=== PATIENT | male | born 1960 | race Caucasian/White ===

== ENCOUNTER 2017-07-17 09:00 | Emergency (ER) | payer OTHER ==
--- NOTE | 2017-07-17 09:06 | ED Physician Documentation ---
PD HPI HEADACHE - Stated complaint Stated Complaint: MIGRAINE - History obtained from History obtained from: Patient - History of Present Illness Timing - onset: Yesterday Timing - onset during: Light activity Timing - duration: Days (09/27) Timing - details: Gradual onset, Still present Worst headache ever?: No: Worst headache ever? Location: Right Quality: Throbbing, Aching Associated symptoms: Nausea, Vomiting. No: Fever, Weakness, Eye pain, Vision changes Improved by: Dark room. No: Meds (tried usual meds without improvement) Worsened by: Light, Noise Contributing factors: No: Possible carbon monoxide, Recent illness, Trauma Similar symptoms before: Diagnosis (migraines) Review of Systems Constitutional: denies: Fever, Chills Eyes: reports: Decreased vision (slightly blurry), Photophobia. denies: Loss of vision Nose: denies: Rhinorrhea / runny nose, Congestion Throat: denies: Sore throat Respiratory: denies: Cough GI: reports: Nausea, Vomiting. denies: Abdominal Pain, Diarrhea Skin: denies: Rash, Lesions Neurologic: reports: Headache. denies: Focal weakness, Numbness, Difficulty speaking, Altered mental status, Head injury PD PAST MEDICAL HISTORY - Past Medical History Cardiovascular: Hypertension Respiratory: Sleep apnea Neuro: Headache/migraine GI: GERD - Past Surgical History Past Surgical History: Yes - Present Medications Home Medications: Ambulatory Orders Medication Instructions Recorded Confirmed Lisinopril 10 mg DAILY 09/27/15 07/17/17 Promethazine [Phenergan] 25 mg PO Q6H PRN #20 tab 07/17/17 Rizatriptan Benzoate [Rizatriptan] 10 mg PO ONCE PRN #5 tablet 07/17/17 - Allergies Allergies/Adverse Reactions: Allergies Allergy/AdvReac Type Severity Reaction Status Date / Time No Known Drug Allergies Allergy Verified 09/27/15 10:12 - Social History Does the pt smoke?: No Smoking Status: Never smoker Does the pt drink ETOH?: No Does the pt have substance abuse?: No - Immunizations Immunizations are current?: Yes PD ED PE NORMAL - Vitals Vital signs reviewed: Yes - General General: Alert and oriented X 3, Well developed/nourished - HEENT HEENT: Atraumatic, PERRL (light sensitive), Pharynx benign - Neck Neck: Supple, no meningeal sign, No adenopathy - Cardiac Cardiac: RRR, No murmur - Respiratory Respiratory: Clear bilaterally - Derm Derm: Normal color, Warm and dry, No rash - Extremities Extremities: Normal ROM s pain - Neuro Neuro: Alert and oriented X 3, enroller 2-12 intact, No motor deficit, No sensory deficit, Normal speech Results - Vitals Vitals: Oxygen O2 Source Room air PD MEDICAL DECISION MAKING - ED course Complexity details: re-evaluated patient (improved quite a bit, bot not complete resolution, but feels good enough to go.), considered differential, d/ w patient Departure - Departure Disposition: Home, Self Care Clinical Impression: Migraine Qualifiers: Migraine type: without aura Status migrainosus presence: without status migrainosus Intractability: intractable Qualified Code(s): G43.019 - Migraine without aura, intractable, without status migrainosus Condition: Stable Record reviewed to determine appropriate education?: Yes Instructions: ED Headache Migraine Follow-Up: Fred Saunders MD [Primary Care Provider] - Prescriptions: Promethazine [Phenergan] 25 mg PO Q6H PRN #20 tab PRN Reason: Nausea / Vomiting Rizatriptan Benzoate [Rizatriptan] 10 mg PO ONCE PRN #5 tablet PRN Reason: Headache Comments: For further headaches, continue with the Excedrin Migraine initially. If that does not work then try a combination of the rizatriptan and Phenergan and see if that makes the headache go away over 30 minutes or so. If still recurrent and persistent, he can return to the ER as needed. Follow-up with your family doctor if more frequent headaches develop as it can be some preventative medicines as well. Discharge Date/Time: 07/17/17 10:36
[2017-07-17] MEDS ORDERED: KETOROLAC 60 MG/2 ML VIAL IVP STA (09:20)
[2017-07-17] MEDS ORDERED: SODIUM CHLORIDE 0.9% 1,000 ML IV ONE (09:20)
[2017-07-17] MEDS ORDERED: METOCLOPRAMIDE 10 MG/2 ML VIAL IVP STA (09:21)
[2017-07-17] MEDS ORDERED: DEXAMETHASONE 10 MG/ML VIAL IVP STA (09:21)
[2017-07-17] MEDS ORDERED: KETOROLAC 30 MG/ML VIAL ONE (09:29)
[2017-07-17] MEDS ORDERED: METOCLOPRAMIDE 10 MG/2 ML VIAL ONE (09:29)
[2017-07-17] MEDS ORDERED: DEXAMETHASONE 10 MG/ML VIAL ONE (09:29)
[2017-07-17 10:31] VITALS: BP 142/104
== END 2017-07-17 10:36 | disposition home or self-care (01) ==
LOC: ED 09:00
DX: G43.019 Migraine without aura, intractable, without status migrainosus (principal); I10 Essential (primary) hypertension
CPT/HCPCS: 96361; 96374; 96375; 99283; 99284

== ENCOUNTER 2017-12-28 07:56 | Day surgery (SDC) | payer OTHER ==
[2017-12-28] MEDS ORDERED: LACTATED RINGERS 1,000 ML IV ONE (08:34)
[2017-12-28] MEDS ORDERED: fentaNYL 100 MCG/2 ML VIAL IVP ONE (09:51)
[2017-12-28] MEDS ORDERED: MIDAZOLAM 2 MG/2 ML VIAL IVP ONE (09:51)
[2017-12-28 10:54] VITALS: BP 116/70
== END 2017-12-28 07:57 | disposition home or self-care (01) ==
LOC: SDS 07:56
PROVIDERS: ATTEND Internal Medicine
PROC: 0DB38ZX Excision of Lower Esophagus, Via Natural or Artificial Opening Endoscopic, Diagnostic (ICD-10-PCS; 2017-12-28)
PROC: 0DB48ZX Excision of Esophagogastric Junction, Via Natural or Artificial Opening Endoscopic, Diagnostic (ICD-10-PCS; 2017-12-28)
PROC: 0DB68ZX Excision of Stomach, Via Natural or Artificial Opening Endoscopic, Diagnostic (ICD-10-PCS; principal; 2017-12-28 09:30)
DX: R13.10 Dysphagia, unspecified (principal); K22.10 Ulcer of esophagus without bleeding
CPT/HCPCS: 43239; J7120

== ENCOUNTER 2018-09-15 10:15 | Emergency (ER) | payer OTHER ==
[2018-09-15 10:26] VITALS: BP 135/90
--- NOTE | 2018-09-15 12:02 | ED Physician Documentation ---
PD HPI OPHTHO - Stated complaint Stated Complaint: L EYE IRRITATION - Chief complaint Chief Complaint: Heent - History obtained from History obtained from: Patient - History of Present Illness Timing - onset: Other (2 days of irritation and drainage from the left eye without specific injury. He did not wear contacts. It starting to mildly affect his vision.) Review of Systems Constitutional: denies: Fever, Chills Eyes: reports: Decreased vision, Discharge, Irritation. denies: Loss of vision, Photophobia Ears: denies: Loss of hearing PD PAST MEDICAL HISTORY - Past Medical History Cardiovascular: Hypertension Respiratory: Sleep apnea, CPAP use Endocrine/Autoimmune: None GI: GERD, Hiatal hernia : None HEENT: Chronic vision loss, Chronic sinusitis Psych: Post traumatic stress disorder Musculoskeletal: Chronic back pain Derm: None - Past Surgical History Past Surgical History: Yes General: Gastric surgery, Hiatal hernia repair, Colonoscopy Ortho: Spine surgery - Present Medications Home Medications: Ambulatory Orders Medication Instructions Recorded Confirmed Lisinopril 10 mg DAILY 09/27/15 12/28/17 Amitriptyline [Elavil] 10 mg PO DAILY 12/28/17 12/28/17 Aspirin/Acetaminophen/Caffeine 1 cap PO DAILY PRN 12/28/17 12/28/17 [Excedrin Migraine Caplet] Cephalexin [Keflex] 500 mg PO BID 12/28/17 12/28/17 Omeprazole [PriLOSEC] 20 mg PO BID 12/28/17 12/28/17 Polymyxin B/Trimeth Ophth Drop 1 drops EACHEYE Q3H 7 Days #1 09/15/18 [Polytrim Ophth Drops] bottle - Allergies Allergies/Adverse Reactions: Allergies Allergy/AdvReac Type Severity Reaction Status Date / Time Latex, Natural Rubber AdvReac Rash Verified 09/15/18 10:26 - Social History Does the pt smoke?: No Smoking Status: Never smoker Does the pt drink ETOH?: No Does the pt have substance abuse?: No - Immunizations Immunizations are current?: Yes PD ED PE NORMAL - Vitals Vital signs reviewed: Yes - General General: Alert and oriented X 3, No acute distress - HEENT HEENT: PERRL, EOMI, Other (Left-sided conjunctivitis without floor seen uptake, Silviano-Pen on the left is 15. Symptoms are completely resolved after proparacaine administration.) - Neck Neck: Supple, no meningeal sign, No bony TTP - Neuro Neuro: Alert and oriented X 3, Normal speech Results - Vitals Vitals: Vital Signs - 24 hr 09/15/18 10:23 Temperature 35.7 C L Heart Rate 76 Respiratory 20 Rate Blood Pressure 135/90 H O2 Saturation 95 Oxygen O2 Source Room air Departure - Departure Disposition: Home, Self Care Clinical Impression: Left conjunctivitis Qualifiers: Conjunctivitis type: acute Acute conjunctivitis type: unspecified Qualified Code(s): H10.32 - Unspecified acute conjunctivitis, left eye Condition: Good Record reviewed to determine appropriate education?: Yes Instructions: ED Conjunctivitis Nonspecific Prescriptions: Polymyxin B/Trimeth Ophth Drop [Polytrim Ophth Drops] 1 drops EACHEYE Q3H 7 Days #1 bottle Comments: Follow-up with your eye doctor on Tuesday if not better, return if worse or if new symptoms develop. Your blood pressure was elevated today on check into the emergency department. This does not mean that you have hypertension, it is a common phenomenon to come to the emergency department and have elevated blood pressure. I recommend that you see your primary care physician within the week to have it rechecked when you are feeling better.
[2018-09-15] MEDS: PROPARACAINE 0.5% OPHTH DROPS 15 ML LEFTEYE STA (12:08)
== END 2018-09-15 12:10 | disposition home or self-care (01) ==
LOC: ED 10:15
DX: H10.32 Unspecified acute conjunctivitis, left eye (principal); I10 Essential (primary) hypertension
CPT/HCPCS: 99281; 99283

== ENCOUNTER 2019-04-22 11:17 | Emergency (ER) | payer OTHER ==
[2019-04-22 11:34] VITALS: BP 133/115
[2019-04-22] MEDS ORDERED: CLINDAMYCIN 150 MG CAPSULE PO STA (11:57)
--- NOTE | 2019-04-22 12:00 | ED Physician Documentation ---
PD HPI HEENT - Stated complaint Stated Complaint: UPPER R EYE IRRITATION - Chief complaint Chief Complaint: Heent - History obtained from History obtained from: Patient - History of Present Illness Timing - onset: How many weeks ago (1) Timing - duration: Weeks (1) Timing - details: Still present Location: Other (right eyelid) Associated symptoms: Facial swelling (right eyelid) Similar symptoms before: Has not had sx before - Additional information Additional information: The patient is a 59-year-old male who presents with swelling of his right upper eyelid on the lateral aspect. It first started about 1 week ago and has been persistent since that time. He has tried squeezing it but nothing comes out. He denies fever, visual disturbance, nausea or vomiting. He wears glasses for reading. He denies history of similar symptoms in the past. He has no personal history of MRSA infection. 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 Review of Systems Constitutional: denies: Fever Eyes: reports: Other (Swelling right upper eyelid.). denies: Discharge Ears: denies: Ear pain Nose: denies: Congestion Throat: denies: Sore throat Cardiac: denies: Chest pain / pressure Respiratory: denies: Dyspnea, Cough GI: denies: Abdominal Pain, Nausea, Vomiting Skin: denies: Rash Musculoskeletal: denies: Neck pain Neurologic: reports: Headache (mild.) PD PAST MEDICAL HISTORY - Past Medical History Cardiovascular: Hypertension Respiratory: Sleep apnea, CPAP use Endocrine/Autoimmune: None GI: GERD, Hiatal hernia : None HEENT: Chronic vision loss, Chronic sinusitis Psych: Post traumatic stress disorder Musculoskeletal: Chronic back pain Derm: None - Past Surgical History Past Surgical History: Yes General: Gastric surgery, Hiatal hernia repair, Colonoscopy Ortho: Spine surgery - Present Medications Home Medications: Ambulatory Orders Medication Instructions Recorded Confirmed Lisinopril 10 mg DAILY 09/27/15 12/28/17 Amitriptyline [Elavil] 10 mg PO DAILY 12/28/17 12/28/17 Aspirin/Acetaminophen/Caffeine 1 cap PO DAILY PRN 12/28/17 12/28/17 [Excedrin Migraine Caplet] Omeprazole [PriLOSEC] 20 mg PO BID 12/28/17 12/28/17 Clindamycin HCl [Clindamycin 300MG 300 mg PO Q6H #28 capsule 04/22/19 CAP] - Allergies Allergies/Adverse Reactions: Allergies Allergy/AdvReac Type Severity Reaction Status Date / Time Latex, Natural Rubber AdvReac Rash Verified 04/22/19 11:24 - Social History Does the pt smoke?: No Smoking Status: Never smoker Does the pt drink ETOH?: No Does the pt have substance abuse?: No - Immunizations Immunizations are current?: Yes PD ED PE NORMAL - Vitals Vital signs reviewed: Yes (Hypertensive) - General General: Alert and oriented X 3, Well developed/nourished - HEENT HEENT: Atraumatic, PERRL, EOMI, Ears normal, Pharynx benign, Other (There is swelling at the lateral aspect of the right upper eyelid, with superficial abrasion. There is no fluctuance. There is mild tenderness to palpation.) - Neck Neck: Supple, no meningeal sign, No adenopathy - Cardiac Cardiac: RRR - Respiratory Respiratory: No respiratory distress, Clear bilaterally - Derm Derm: No rash - Neuro Neuro: Alert and oriented X 3, No motor deficit, Normal speech Results - Vitals Vitals: Vital Signs - 24 hr 04/22/19 04/22/19 11:23 11:33 Temperature 36.3 C L 36.7 C Heart Rate 93 96 Respiratory 20 15 Rate Blood Pressure 145/116 H 133/115 H O2 Saturation 92 92 Oxygen O2 Source Room air PD MEDICAL DECISION MAKING - ED course Complexity details: considered differential, d/w patient ED course: The patient's presentation is most consistent with superficial cellulitis of the right upper eyelid. This does not appear to be an abscess, and there is no evidence of conjunctival involvement. Treatment in the emergency department included administration of clindamycin 300 mg orally. He is being discharged with prescription for clindamycin. I discussed with him and his male clinic administrator antibiotic treatment and outpatient follow-up, as well as potentially worrisome signs or symptoms that should prompt reevaluation in the emergency department. Departure - Departure Disposition: 01 Home, Self Care Clinical Impression: Cellulitis Qualifiers: Site of cellulitis: face Qualified Code(s): L03.211 - Cellulitis of face Condition: Stable Instructions: ED Infec Skin Cellulitis Follow-Up: [facility] [Provider Group] Prescriptions: Clindamycin HCl [Clindamycin 300MG CAP] 300 mg PO Q6H #28 capsule Comments: Take clindamycin 4 times daily as prescribed. You can use ibuprofen, up to 800 mg 3 times daily if needed for discomfort. Follow-up with your primary physician within 2 weeks. Call to schedule an appointment. Return to the emergency department if you develop increasing redness, swelling, pain, or otherwise worsening symptoms. Discharge Date/Time: 04/22/19 12:11
== END 2019-04-22 12:11 | disposition home or self-care (01) ==
LOC: ED 11:17
DX: H00.031 Abscess of right upper eyelid (principal); S00.211A Abrasion of right eyelid and periocular area, initial encounter; X58.XXXA Exposure to other specified factors, initial encounter; I10 Essential (primary) hypertension
CPT/HCPCS: 99282; 99283; A9270

== ENCOUNTER 2019-07-18 06:26 | Emergency (ER) | payer OTHER ==
[2019-07-18] MEDS ORDERED: BUTALB/ACETAM/CAFF 50/325/40MG TABLET PO STA (07:26)
[2019-07-18] MEDS ORDERED: SUMAtriptan 6 MG/0.5 ML VIAL SUBQ STA (07:26)
--- NOTE | 2019-07-18 08:04 | ED Physician Documentation ---
PD HPI HEADACHE - Stated complaint Stated Complaint: MIGRAINE - Chief complaint Chief Complaint: Neuro - History obtained from History obtained from: Patient - History of Present Illness Timing - onset: How many days ago (2) Timing - duration: Days (2) Timing - details: Gradual onset Pain level max: 8 Pain level now: 8 Location: Global Quality: Throbbing, Aching Associated symptoms: No: Fever, Stiff neck, Nausea, Vomiting, Weakness, Numbness, Syncope, Seizure, Eye pain, Vision changes Improved by: Rest Worsened by: Light, Noise Contributing factors: No: Anticoagulated, Possible carbon monoxide, Hypertension, Recent illness, Trauma Similar symptoms before: Diagnosis (migraines) Recently seen: Not recently seen - Additional information Additional information: Patient with his usual migraine headache. States take Excedrin yesterday without relief. Described as holoacranial. Gradual onset. Throbbing, aching. Review of Systems Constitutional: denies: Fever, Chills GI: denies: Nausea, Vomiting, Diarrhea Skin: denies: Rash Musculoskeletal: denies: Neck pain, Back pain Neurologic: denies: Headache PD PAST MEDICAL HISTORY - Past Medical History Past Medical History: Yes Cardiovascular: Hypertension Respiratory: Sleep apnea, CPAP use Endocrine/Autoimmune: None GI: GERD, Hiatal hernia : None HEENT: Chronic vision loss, Chronic sinusitis Psych: Post traumatic stress disorder Musculoskeletal: Chronic back pain Derm: None - Past Surgical History Past Surgical History: Yes General: Gastric surgery, Hiatal hernia repair, Colonoscopy Ortho: Spine surgery - Present Medications Home Medications: Ambulatory Orders Medication Instructions Recorded Confirmed Lisinopril 10 mg DAILY 09/27/15 12/28/17 Amitriptyline [Elavil] 10 mg PO DAILY 12/28/17 12/28/17 Aspirin/Acetaminophen/Caffeine 1 cap PO DAILY PRN 12/28/17 12/28/17 [Excedrin Migraine Caplet] Omeprazole [PriLOSEC] 20 mg PO BID 12/28/17 12/28/17 Clindamycin HCl [Clindamycin 300MG 300 mg PO Q6H #28 capsule 04/22/19 CAP] - Allergies Allergies/Adverse Reactions: Allergies Allergy/AdvReac Type Severity Reaction Status Date / Time Latex, Natural Rubber AdvReac Rash Verified 07/18/19 06:44 - Social History Does the pt smoke?: No Smoking Status: Never smoker Does the pt drink ETOH?: No Does the pt have substance abuse?: No - Immunizations Immunizations are current?: Yes PD ED PE NORMAL - Vitals Vital signs reviewed: Yes - General General: Alert and oriented X 3, No acute distress, Well developed/nourished - HEENT HEENT: Atraumatic, PERRL, EOMI, Moist mucous membranes - Neck Neck: Supple, no meningeal sign - Cardiac Cardiac: RRR, Strong equal pulses - Respiratory Respiratory: No respiratory distress, Clear bilaterally - Derm Derm: Warm and dry - Neuro Neuro: Alert and oriented X 3, research assistant 2-12 intact, No motor deficit, No sensory deficit, Normal speech Eye Opening: Spontaneous Motor: Obeys Commands Verbal: Oriented GCS Score: 15 - Psych Psych: Normal mood, Normal affect Results - Vitals Vitals: Vital Signs - 24 hr 07/18/19 06:41 Temperature 36.8 C Heart Rate 76 Respiratory 16 Rate Blood Pressure 126/99 H O2 Saturation 97 Oxygen O2 Source Room air PD MEDICAL DECISION MAKING - ED course Complexity details: re-evaluated patient, considered differential, d/w patient ED course: Patient with his usual migraine headache. Given Imitrex and Fioricet. Headache resolved. Feels much better. No evidence of subarachnoid hemorrhage, tumor. Patient counseled regarding signs and symptoms for which I believe and urgent re-evaluation would be necessary. Patient with good understanding of and agreement to plan and is comfortable going home at this time This document was made in part using voice recognition software. While efforts are made to proofread this document, sound alike and grammatical errors may occur. Departure - Departure Disposition: 01 Home, Self Care Clinical Impression: Migraine Qualifiers: Migraine type: unspecified Status migrainosus presence: without status migrai nosus Intractability: not intractable Qualified Code(s): G43.909 - Migraine, unspecified, not intractable, without status migrainosus Condition: Good Instructions: ED Headache Migraine Follow-Up: your,doctor as needed [Other] - Within 1 week Comments: Return if you worsen. Follow up with your doctor as needed for further care. You were given imitrex and fioricet today.
[2019-07-18 08:12] VITALS: BP 142/112
== END 2019-07-18 08:12 | disposition home or self-care (01) ==
LOC: ED 06:26
DX: G43.909 Migraine, unspecified, not intractable, without status migrainosus (principal); I10 Essential (primary) hypertension
CPT/HCPCS: 99282; 99284; A9270

== ENCOUNTER 2019-09-24 14:50 | Outpatient (CLI) | payer OTHER ==
[2019-09-24] MEDS ORDERED: GADOBUTROL 15 MMOL/15 ML VIAL ONE (14:54)
[2019-09-24] MEDS ORDERED: GADOBUTROL 15 MMOL/15 ML VIAL IVP ONE (15:47)
--- NOTE | 2019-09-25 13:13 | MRI Report ---
Reason: DORSALGIA Procedure Date: 09/24/2019 Accession Number: [id number] / [id number] Procedure: MRI - Lumbar Spine W/WO CPT Code: Final Report FULL RESULT: EXAM: MRI LUMBAR SPINE WITHOUT AND WITH CONTRAST. EXAM DATE: 09/24/2019 03:56 PM. CLINICAL HISTORY: Lower back pain. Pain and numbness shooting down the left leg. Previous surgery at L5-S1. COMPARISONS: LUMBAR SPINE 03/21/2008 8:49 AM. TECHNIQUE: Multiplanar, multisequence T1-weighted and fluid-sensitive sequences of the lumbar spine from T12 to S1 before and after administration of intravenous contrast. Other: None. IV contrast: 12 cc Gadavist. FINDINGS: Neurologic Structures: The conus terminates at L1-L2. The conus medullaris and cauda equina are unremarkable. Alignment: Normal alignment. No spondylolisthesis. Bone Marrow: Five dgb-mew-kangibr lumbar vertebral bodies are assumed. No acute fracture. No destructive bone lesion. Postsurgical change of previous right hemilaminotomy at L5-S1. L5 vertebral body hemangioma. Mixed endplate edema as well as some fatty endplate change at the L5-S1 level. Disk Levels/Facets: T12-L1: Unremarkable. L1-L2: Unremarkable. L2-L3: Unremarkable. L3-L4: Minimal disk bulge. Mild facet arthropathy. No stenosis. L4-L5: Mild disk height loss and dehydration. Annular disk bulge with small central protrusion. Moderate degenerative facet arthropathy. Mild central canal stenosis. Right greater than left lateral recess stenosis. Mild bilateral foraminal stenosis. Not significantly changed from prior. L5-S1: Moderate disk height loss is increased in severity compared to prior. Interval increase in diskogenic endplate changes with some fatty change as well as a small amount of endplate edema. Slight annular disk bulge with small osteophyte formation. Moderate bilateral degenerative facet arthropathy. Moderate bilateral foraminal stenosis is slightly decreased in severity bilaterally, especially on the right. Spinal Canal: No enhancing masses within the spinal canal. No epidural abscess. Musculature: Normal. No edema, abnormal enhancement, or fatty atrophy. Other: The visualized retroperitoneum is unremarkable. IMPRESSION: 1. L5-S1 degenerative disk change is increased in severity. However, moderate bilateral foraminal stenosis is slightly decreased in severity from prior. 2. L4-L5 mild bilateral foraminal stenosis unchanged. Comment: The following findings are so common in adults without low back pain that while we report their presence, they must be interpreted with caution and in the context of the clinical situation. (Reference Kennedy et al, Spine 2001) Prevalence of findings in patients without low back pain: Disk degeneration (any evidence): 92% Disk desiccation/T2 signal loss: 83% Disk height loss: 56% Disk bulge: 64% Disk protrusion: 32% Annular tear/high intensity zone: 38% RADIA
== END 2019-09-24 14:51 | disposition home or self-care (01) ==
LOC: DI 14:50
PROVIDERS: ATTEND Internal Medicine
DX: M51.36 Other intervertebral disc degeneration, lumbar region (principal); M48.061 Spinal stenosis, lumbar region without neurogenic claudication; M51.26 Other intervertebral disc displacement, lumbar region; M47.816 Spondylosis without myelopathy or radiculopathy, lumbar region; M47.817 Spondylosis without myelopathy or radiculopathy, lumbosacral region; M51.37 Other intervertebral disc degeneration, lumbosacral region; M48.07 Spinal stenosis, lumbosacral region
CPT/HCPCS: 72158; A9585

== ENCOUNTER 2020-03-31 10:11 | Outpatient (CLI) | payer OTHER ==
[2020-03-31 10:44] LABS: CREATININE 0.8 mg/dL (0.6-1.2)
[2020-03-31] MEDS ORDERED: IOVERSOL 320 100 ML VIAL IVP ONE ×2 (10:50→11:45)
--- NOTE | 2020-03-31 17:19 | CT Report ---
PROCEDURE: CHEST W INDICATIONS: HX OF TB IN 90S CONTRAST: IV CONTRAST: Optiray 320 ml: 100 PO CONTRAST: *NO PO CONTRAST TECHNIQUE: After the administration of intravenous contrast, 5 mm thick sections acquired from the pulmonary api gaby to the posterior costophrenic angles. 7 mm thick coronal MIP reformats were acquired. For radia tion dose reduction, the following was used: automated exposure control, adjustment of mA and/or kV according to patient size. COMPARISON: None. FINDINGS: Image quality: Excellent. Lungs and pleura: No acute air space opacities. No pleural effusions or pneumothorax. Central and peripheral airways are patent and normal in caliber. Mediastinum: Heart size is normal. No pericardial effusion. No mediastinal or hilar adenopathy by size criteria. Thoracic aorta and central pulmonary arteries are normal in size. Esophagus is ludmila l in caliber. No hiatal hernia. Bones and chest wall: No suspicious bony lesions. No vertebral body compression fractures. No axil lorie or supraclavicular adenopathy by size criteria. Thyroid gland demonstrates a small focus low at tenuation within the right lobe and isthmus. Abdomen: Visualized upper abdominal solid organs appear normal. Upper abdominal bowel loops are nor mal in caliber. IMPRESSION: 1. No acute pulmonary process. 2. Low-attenuation foci within the thyroid as above. Thyroid ultrasound is recommended for further ev aluation. Reviewed by: Shara Yeung MD on 03/31/2020 5:18 PM PDT Approved by: Shara Yeung MD on 03/31/2020 5:18 PM PDT Station ID: [id number]
== END 2020-03-31 10:12 | disposition home or self-care (01) ==
LOC: LAB 10:11 → DI 10:12
PROVIDERS: ATTEND Family Medicine
DX: R04.2 Hemoptysis (principal); Z86.11 Personal history of tuberculosis
CPT/HCPCS: 36415; 71260; 82565; Q9967

== ENCOUNTER 2020-11-03 07:44 | Outpatient (CLI) | payer OTHER ==
--- NOTE | 2020-11-03 15:09 | Ultrasound Report ---
PROCEDURE: Head or Neck Soft Tissue INDICATIONS: ABN FINDINGS ON CT TECHNIQUE: Real-time scanning was performed of the thyroid gland, with image documentation. COMPARISON: Chest CT 03/31/2020 FINDINGS: Right: Thyroid lobe measures 4.3 x 1.9 x 1.5 cm, and is homogeneous in echotexture. Left: Thyroid lobe measures 4.2 x 2.1 x 1.6 cm, and is homogenous in echotexture. Isthmus: 5 mm thick. Nodule number: One Location: Right inferior lobe Size: 2.3 x 1.7 x 1.6 cm. Composition: Solid Echogenicity: Hypoechoic Shape: wider than tall. Margins: Lobulated Echogenic foci: None Total points: 4 ACR TI-RADS category: 4 Nodule number: Two Location: Left mid lobe Size: 1.8 x 1.5 x 1.5 cm. Composition: Solid Echogenicity: Size Shape: wider than tall. Margins: Lobulated Echogenic foci: Punctate Total points: 7 ACR TI-RADS category: 5 Nodule number: Three Location: Is Size: 0.7 x 0.6 x 0.3 cm. Composition: Solid Echogenicity: Hypoechoic Shape: wider than tall. Margins: Lobular Echogenic foci: None Total points: 4 ACR TI-RADS category: 4 IMPRESSION: 1. Lesion 1 is category 4. Secondary to size, thyroid FNA is recommended. 2. Lesion 2 is category 7. Secondary to size, thyroid FNA is recommended. 3. Lesion 3 is category 4. Secondary to size, no additional follow-up as below. ACR TI-RADS definitions and recommendations: TI-RADS 1 (benign): 0 points. FNA not needed. TI-RADS 2 (not suspicious): 2 points. FNA not needed. TI-RADS 3 (mildly suspicious): 3 points. ? FNA if 2.5 cm or larger, follow up if 1.5 cm or larger (at 1, 3, and 5 years). TI-RADS 4 (moderately suspicious): 4-6 points. ? FNA if 1.5 cm or larger, follow up if 1 cm or larger (at 1, 2, 3, and 5 years). TI-RADS 5 (highly suspicious): 7 points or more. ? FNA if 1 cm or larger, follow up if 0.5 cm or larger (every year for 5 years). Reviewed by: Shara Yeung MD on 11/03/2020 3:08 PM PST Approved by: Shara Yeung MD on 11/03/2020 3:08 PM PST Station ID: [id number]
== END 2020-11-03 07:45 | disposition home or self-care (01) ==
LOC: DI 07:44
PROVIDERS: ATTEND Nurse Practitioner Family
DX: E04.2 Nontoxic multinodular goiter (principal)

== ENCOUNTER 2021-04-27 11:36 | Emergency (ER) | payer OTHER ==
[2021-04-27] MEDS ORDERED: METOCLOPRAMIDE 10 MG/2 ML VIAL IVP STA (14:02)
[2021-04-27] MEDS ORDERED: KETOROLAC 30 MG/ML VIAL IVP STA (14:02)
--- NOTE | 2021-04-27 14:03 | ED Physician Documentation ---
History of Present Illness - Stated complaint Stated Complaint: MIGRAINE/SINUS PX - Chief complaint Chief Complaint: Neuro - History obtained from History obtained from: Patient - Additonal information Additional information: 60-year-old gentleman has frequent migraines, almost on a daily basis. Has had his typical headache for the last 5 days but a little worse than normal and not responsive to oral Imitrex. It is associated with purulent sinus drainage and frontal sinus pain. Also some left ear pain. Had mild nonradiating substernal pressure while in the waiting room as well. It is gone. Review of Systems Constitutional: denies: Fever, Chills Eyes: reports: Photophobia. denies: Loss of vision, Decreased vision Ears: reports: Ear pain. denies: Loss of hearing PD PAST MEDICAL HISTORY - Past Medical History Cardiovascular: Hypertension Respiratory: Sleep apnea, CPAP use Endocrine/Autoimmune: None GI: GERD, Hiatal hernia : None HEENT: Chronic vision loss, Chronic sinusitis Psych: Post traumatic stress disorder Musculoskeletal: Chronic back pain Derm: None - Past Surgical History Past Surgical History: Yes General: Gastric surgery, Hiatal hernia repair, Colonoscopy Ortho: Spine surgery - Present Medications Home Medications: Ambulatory Orders Medication Instructions Recorded Confirmed lisinopriL [Lisinopril] 10 mg DAILY 09/27/15 12/28/17 Amitriptyline [Elavil] 10 mg PO DAILY 12/28/17 12/28/17 Aspirin/Acetaminophen/Caffeine 1 cap PO DAILY PRN 12/28/17 12/28/17 [Excedrin Migraine Caplet] Omeprazole [PriLOSEC] 20 mg PO BID 12/28/17 12/28/17 Clindamycin HCl [Clindamycin 300MG 300 mg PO Q6H #28 capsule 04/22/19 CAP] Amox/Clav 875/125 [Augmentin] 1 each PO Q12H #20 tablet 04/27/21 - Allergies Allergies/Adverse Reactions: Allergies Allergy/AdvReac Type Severity Reaction Status Date / Time Latex, Natural Rubber AdvReac Rash Verified 04/27/21 12:10 - Social History Does the pt smoke?: No Smoking Status: Never smoker Does the pt drink ETOH?: No Does the pt have substance abuse?: No - Immunizations Immunizations are current?: Yes PD ED PE NORMAL - Vitals Vital signs reviewed: Yes - General General: Alert and oriented X 3, No acute distress - HEENT HEENT: Other (Tender over both maxillary sinuses, TMs are normal.) - Neck Neck: Supple, no meningeal sign, No bony TTP - Neuro Neuro: Alert and oriented X 3, 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 No: ST elevation c/w ischemia, ST depression - Labs Labs: Laboratory Tests 04/27/21 04/27/21 04/27/21 14:12 14:12 14:12 WBC 7.0 RBC 5.19 Hgb 16.5 Hct 48.6 MCV 93.6 MCH 31.8 H MCHC 34.0 RDW 12.2 Plt Count 226 MPV 10.5 Neut # (Auto) 3.5 Lymph # (Auto) 2.2 [place] # (Auto) 0.6 Eos # (Auto) 0.5 Baso # (Auto) 0.1 Absolute Nucleated RBC 0.00 Nucleated RBC % 0.0 Sodium 140 Potassium 4.1 Chloride 105 Carbon Dioxide 25 Anion Gap 10.0 BUN 18 Creatinine 1.1 Estimated GFR (MDRD) 68 L Glucose 107 H Calcium 9.4 Total Bilirubin 1.0 AST 24 ALT 27 Alkaline Phosphatase 90 Troponin I High Sens 8.9 Total Protein 7.4 Albumin 4.8 Globulin 2.6 Albumin/Globulin Ratio 1.8 Lipase 27 PD MEDICAL DECISION MAKING - ED course ED course: 60-year-old gentleman presents with migraine headache, probably from his sinus infection. Also had some brief chest pain but the work-up there was negative. Feeling better after Reglan and Toradol IV. Departure - Departure Disposition: 01 Home, Self Care Clinical Impression: Migraine Qualifiers: Migraine type: with aura Status migrainosus presence: with status migrainosus Intractability: intractable Qualified Code(s): G43.111 - Migraine with aura, intractable, with status migrainosus Sinusitis Qualifiers: Sinusitis location: maxillary Chronicity: acute Recurrence: recurrent Qualified Code(s): J01.01 - Acute recurrent maxillary sinusitis Condition: Good Record reviewed to determine appropriate education?: Yes Instructions: ED Headache Migraine, ED Sinusitis Abx Tx Prescriptions: Amox/Clav 875/125 [Augmentin] 1 each PO Q12H #20 tablet Comments: Call your doctor to arrange a follow-up appointment, make the next available appointment. In the interim, return anytime if worse or if new symptoms develop. Discharge Date/Time: 04/27/21 14:57
--- NOTE | 2021-04-27 14:07 | XRAY Report ---
PROCEDURE: Chest 1 View X-Ray INDICATIONS: Chest Pain TECHNIQUE: One view of the chest was acquired. COMPARISON: CT chest 03/31/2020. FINDINGS: Surgical changes and devices: None. Lungs and pleura: No pleural effusions or pneumothorax. Lungs are clear. Mediastinum: Mediastinal contours appear normal. Heart size is normal. Bones and chest wall: No suspicious bony lesions. Overlying soft tissues appear unremarkable. IMPRESSION: No acute cardiopulmonary disease process. Reviewed by: Sinai Cutler MD, PhD on 04/27/2021 2:06 PM PDT Approved by: Sinai Cutler MD, PhD on 04/27/2021 2:06 PM PDT Station ID: [id number]
[2021-04-27 14:19] LABS: BASOPHILS # (AUTO) 0.1 10^3/uL (0.0-0.1); BASOPHILS % (AUTO) 1.3 %; EOSINOPHILS # (AUTO) 0.5 10^3/uL (0.0-0.7); EOSINOPHILS % (AUTO) 6.7 %; HCT - HEMATOCRIT 48.6 % (42.0-52.0); HGB - HEMOGLOBIN 16.5 g/dL (14.0-18.0); LYMPHOCYTES # (AUTO) 2.2 10^3/uL (1.5-3.5); MEAN CORPUSCULAR HEMOGLOBIN 31.8 pg (27.0-31.0); MEAN CORPUSCULAR VOLUME 93.6 fL (80.0-94.0); MEAN PLATELET VOLUME 10.5 fL (7.4-11.4); MONOCYTES # (AUTO) 0.6 10^3/uL (0.0-1.0); MONOCYTES % (AUTO) 8.2 %; NEUTROPHILS # (AUTO) 3.5 10^3/uL (1.5-6.6); NEUTROPHILS % (AUTO) 50.8 %; PLT - PLATELET COUNT 226 10^3/uL (130-450); RED BLOOD COUNT 5.19 10^6/uL (4.70-6.10); RED CELL DISTRIBUTION WIDTH 12.2 % (12.0-15.0)
[2021-04-27 14:34] LABS: ALBUMIN 4.8 g/dL (3.2-5.5); ALBUMIN/GLOBULIN RATIO 1.8 (1.0-2.2); CALCIUM 9.4 mg/dL (8.5-10.3); CREATININE 1.1 mg/dL (0.6-1.2); POTASSIUM 4.1 mmol/L (3.5-5.0); TOTAL PROTEIN 7.4 g/dL (6.7-8.2)
[2021-04-27 14:58] VITALS: BP 119/93
== END 2021-04-27 14:57 | disposition home or self-care (01) ==
LOC: ED 11:36
DX: G43.111 Migraine with aura, intractable, with status migrainosus (principal); J01.01 Acute recurrent maxillary sinusitis
CPT/HCPCS: 36415; 71045; 80053; 83690; 84484; 85025; 93005; 96374; 96375; 99284; J2765

== ENCOUNTER 2022-06-28 14:52 | Outpatient (CLI) | payer OTHER ==
[2022-06-29 08:21] VITALS: BP 120/88
--- NOTE | 2022-06-29 08:21 | SLEEP CARE CONSULTATION ---
Information from patient questionnaire entered by Dylan Grant. I have reviewed and concur with the information entered by Dylan Grant. This document represents the service I personally performed and the decisions made by me, Viktor Chan MD, [facility]. History of Present Illness Service Date and Time: 06/28/2022 1452 Reason for Visit: New patient Date of Onset: LONG TIME, SINCE 1989 Usual bedtime: 10PM Time it takes to fall asleep: LONG TIME Snores at night: Yes Sleeps alone due to snoring: No Number of times waking at night: 3-4 Reasons for waking at night: reports: Pain, Bathroom Toss, Turn, or Twitch while sleeping: Yes Recalls having dreams: No Feels refreshed in the morning: No Morning headache: Yes Sleepy or fatigued during the day: Yes Ever fallen asleep while driving: No Takes day naps: No Dreams during day naps: No Prior sleep studies: No Additional HPI information: I had the pleasure of seeing Mr. Gallo today regarding. As you know, he is a 64-year-old gentleman who was diagnosed with severe obstructive sleep apnea- hypopnea in [place] about 20 years ago. He said his last sleep study was at least 15 years ago. He has been using a CPAP the past 20 years. He is now interested in the Inspire therapy (hypoglossal nerve stimulation). He is well informed of the procedure and has been in contact with Dr. Kwan Nicolas in [place]. He said he has been using his CPAP off/on because it is not too comfortable. He wears a full face mask. He did not bring the machine or its memory card for download. He thinks [employer] is his durable medical supplier. He does notice significant benefits when using the CPAP. - Parasomnia Symptoms Ever been unable to move upon waking from sleep: No Walks in sleep: No Talks in sleep: No Ever acted out dreams in sleep: No Ever felt weak in the knees when startled or emotional: No Bothered by creepy, crawly, restless sensations in legs: No Problems with memory or concentration: Yes Subjective Initial [place] Sleepiness Scale score: 12 (10-3-22) Social History The patient's occupation is a RE. Patient is Single and lives in . Have you smoked in the past 12 months: No Alcohol use: No Caffeine use: Yes Caffeine amount and frequency: 2-3 sodas per week Family History Family history of sleep disordered breathing: No Allergies and Home Medications Known drug allergies: No Drug allergies reviewed: Yes Home medication list reviewed: Yes Allergy and home medication list: Allergies Latex, Natural Rubber Adverse Reaction (Verified 04/27/21 12:10) Rash Review of Systems Cardiovascular: reports: high blood pressure Respiratory: denies: shortness of breath, wheeze, sputum production, chronic cough, other Gastrointestinal: reports: heartburn Urinary: denies: incontinence, frequency, urgency, impotence, other Neurological: reports: headaches Psychiatric: denies: Attention Deficit Hyperactivity, anxiety, depression, mood disorder, claustrophobia, other Ear/Nose/Throat: reports: nasal congestion, sinus problems, dry mouth/throat, wisdom teeth removed Endocrine: reports: sluggishness Musculoskeletal: reports: joint pain, neck pain, back pain Immunologic: denies: sneezing, rash, itching, allergies to food or environment, other Physical Exam Vital signs obtained and entered by: MEGAN FRY Blood Pressure: 120/88 (LEFT ARM ) Cuff size: regular Heart Rate: 102 O2 Saturation: 93 Height: 6 ft 4 in Weight: 290 lb Body Mass Index: 35.3 BMI Classification: Obese Neck circumference: 20 (INCHES ) Mood/affect: normal Nostrils: partially obstructed Turbinates: boggy Septum: midline Mouth and throat: narrow oropharynx Soft palate: long Hard palate: normal Uvula: normal Uvula visualization: 50% Mallampati Class II Tongue: normal in size Tonsils: small Chin and jaw: normal size and position Neck: normal w/o lymphadenopathy or thyromegaly Heart: regular rate and rhythm Lungs: clear bilaterally Extremities: no edema or clubbing Neurologic: intact Impression and Plan IMPRESSION: 1. Obstructive Sleep Apnea-Hypopnea Syndrome, of unknown severity. His sleep records are too old to try to obtain. He seems to be a good candidate for the Inspire Therapy. I will order a home sleep apnea test (HSAT) to confirm the diagnosis. Plan: 1. Schedule a HSAT. The patient is not to use his CPAP at least one night prior to the test. 2. Return for follow up after the test. Follow up with Sleep Care in: 1-2 months Visit Type: In Office Video Type: Other Time Spent with Patient (minutes): 15 Provider Statement: I spent 100% of the Face to Face Visit with the patient with greater than 50% spent counseling the patient and coordination of care.
== END 2022-06-28 14:53 | disposition home or self-care (01) ==
LOC: SC 14:52
PROVIDERS: ATTEND Internal Medicine Pulmonary Disease
DX: G47.33 Obstructive sleep apnea (adult) (pediatric) (principal)
CPT/HCPCS: 99202; 99212

== ENCOUNTER 2022-07-06 19:22 | Outpatient (CLI) | payer OTHER | END 2022-07-06 19:23 | disposition home or self-care (01) | LOC: SC 19:22 | PROVIDERS: ATTEND Internal Medicine Pulmonary Disease | DX: G47.33 Obstructive sleep apnea (adult) (pediatric) (principal); R09.02 Hypoxemia | CPT/HCPCS: 95810 ==

== ENCOUNTER 2022-07-26 14:53 | Outpatient (CLI) | payer OTHER ==
[2022-07-26 15:59] VITALS: BP 148/100
--- NOTE | 2022-07-26 15:59 | SLEEP CARE CONSULTATION ---
Information from patient questionnaire entered by Jada Denton. I have reviewed and concur with the information entered by Jada Denton. This document represents the service I personally performed and the decisions made by me, Viktor Chan MD, [facility]. History of Present Illness Service Date and Time: 07/26/2022 1453 Initial [place] Sleepiness Scale score: 12 (10-3-22) Current [place] Sleepiness Scale score: 6 (07/26/22) Additional HPI information: Mr. Elmore returned for follow up of the sleep study he had on 07/06/2022. The in-laboratory polysomnography was performed with oxygen therapy at 2 L/minute. The patient had reduced sleep efficiency due to frequent awakenings throughout the night. The sleep architecture was abnormal for sleep fragmentation and lack of slow wave sleep (N3). Respiratory monitoring showed very severe obstructive sleep apnea-hypopnea (AHI = 78.8) associated with frequent arousals, oxyhemoglobin desaturation and moderate hypoxia (alex oxygen saturation of 76%) despite the oxygen therapy. The respiratory events occurred independently of sleep stage and body position (supine AHI = 72.0; non-supine = 79.23). Snore was loud in intensity. There was no significant periodic leg movement of sleep. Cardiac rhythm was sinus rhythm with frequent premature atrial and ventricular contractions. No abnormal behavior (parasomnia) observed during the night. The patient was informed of these findings. I explained to him the pathophysiology behind obstructive sleep apnea. We then spent quite a bit of time discussing different treatment options. For mild obstructive sleep apnea, surgery and oral appliance are alternatives to nasal CPAP therapy but in moderate or severe cases, nasal CPAP is the most effective and reliable treatment. Weight loss in an obese individual is strongly recommended. After some discussion, he opted to continue with the CPAP therapy. Presently, he is using a machine given to him by the [facility]. He wears a [employer] Quattro full face mask that leaks profusely. He would like a new machine on his [employer] insurance. Sleep Study - Results Type of Sleep Study: Polysomnography (COMPLETED 07/06/2022) Prior sleep studies: No Allergies and Home Medications Drug allergies reviewed: Yes Home medication list reviewed: Yes Allergy and home medication list: Allergies Latex, Natural Rubber Adverse Reaction (Verified 04/27/21 12:10) Rash Review of Systems Review of systems same as previous: Yes Physical Exam Vital signs obtained and entered by: JADA Smith MA Blood Pressure: 148/100 (left arm) Cuff size: regular Heart Rate: 101 O2 Saturation: 96 Height: 6 ft 4 in Weight: 292 lb 12.8 oz Body Mass Index: 35.6 BMI Classification: Obese Impression and Plan IMPRESSION: 1. Obstructive Sleep Apnea-Hypopnea Syndrome, very severe, associated with moderate hypoxemia and sleep fragmentation. I will order him all new equipment through [employer]. He will continue to use the oxygen concentrator provided to him by the [place]. I will set the new autoCPAP at 5 to 15 cmH2O. A manual CPAP/BiPAP titration study may be performed if the setting does not achieve good control. PLAN: 1. Prescription made for an autoCPAP, heated humidifier, and related supplies. 2. Attempt to lose weight and avoid alcohol consumption near bedtime. 3. The patient is again cautioned about driving until his sleepiness completely resolves on the CPAP therapy. 4. Return for follow up after one month of using the CPAP. Prescriptions: Auto CPAP Follow up with Sleep Care in: 1-2 months Follow up recommended for: Hypoxia Visit Type: In Office Time Spent with Patient (minutes): 15 Provider Statement: I spent 100% of the Face to Face Visit with the patient with greater than 50% spent counseling the patient and coordination of care.
== END 2022-07-26 14:54 | disposition home or self-care (01) ==
LOC: SC 14:53
PROVIDERS: ATTEND Internal Medicine Pulmonary Disease
DX: G47.33 Obstructive sleep apnea (adult) (pediatric) (principal); E66.9 Obesity, unspecified; Z68.35 Body mass index [BMI] 35.0-35.9, adult
CPT/HCPCS: 99212

== ENCOUNTER 2022-12-13 07:15 | Emergency (ER) | payer OTHER ==
[2022-12-13 07:29] VITALS: BP 132/90
--- NOTE | 2022-12-13 08:30 | XRAY Report ---
PROCEDURE: Knee 4 View RT INDICATIONS: Trauma TECHNIQUE: 4 views of the right knee(s) were acquired. COMPARISON: None. FINDINGS: Mild to moderate suprapatellar knee effusion. No fracture or dislocation. No suspicious bone lesion. Mild osteoarthritic and degenerative changes worst in the patellofemoral compartment. IMPRESSION: Mild to moderate suprapatellar knee effusion. Reviewed by: Russ Chavez MD on 12/13/2022 8:29 AM PDT Approved by: Russ Chavez MD on 12/13/2022 8:29 AM PDT Station ID: [id number]
--- NOTE | 2022-12-13 08:57 | ED Physician Documentation ---
PD HPI LOWER EXT INJURY - Stated complaint Stated Complaint: R KNEE INJURY - Chief complaint Chief Complaint: Trauma Ext - History obtained from History obtained from: Patient - History of Present Illness PD HPI LOW EXT INJURY LOCATION: Right, Knee Type of injury: Fall (he states he tripped over object and fell with twisting valgus stress on right knee, then struck anteromedial aspect on the floor. Has pain and trouble walking right knee. Pain and some swelling have worsened overnight. Has some grinding feeling at times. Pain with bending/ROM.), Twist, Blunt / blow Where injury occurred: Home Timing - onset: Yesterday Timing - details: Abrupt onset, Still present Worsened by: Moving, Palpating Associated symptoms: Swelling. No: Weakness, Numbness Contributing factors: No: Anticoagulated, Prior ortho surgery Similar symptoms before: Has not had sx before Recently seen: Not recently seen Review of Systems Skin: denies: Lesions, Abrasion (s), Laceration (s) Musculoskeletal: denies: Back pain PD PAST MEDICAL HISTORY - Past Medical History Cardiovascular: Hypertension Respiratory: Sleep apnea, CPAP use Neuro: Migraines Endocrine/Autoimmune: None GI: GERD, Hiatal hernia : None HEENT: Chronic vision loss, Chronic sinusitis Psych: Post traumatic stress disorder Musculoskeletal: Chronic back pain Derm: None - Past Surgical History Past Surgical History: Yes General: Gastric surgery, Hiatal hernia repair, Colonoscopy Ortho: Spine surgery - Present Medications Home Medications: Ambulatory Orders Medication Instructions Recorded Confirmed lisinopriL [Lisinopril] 10 mg ORAL DAILY 09/27/15 12/13/22 Amitriptyline [Elavil] 10 mg PO DAILY 12/28/17 12/13/22 Aspirin/Acetaminophen/Caffeine 1 cap PO DAILY PRN 12/28/17 12/13/22 [Excedrin Migraine Caplet] Omeprazole [PriLOSEC] 20 mg PO BID 12/28/17 12/13/22 Cyclobenzaprine [Flexeril] 10 mg PO TID PRN 12/13/22 12/13/22 - Allergies Allergies/Adverse Reactions: Allergies Allergy/AdvReac Type Severity Reaction Status Date / Time Latex, Natural Rubber AdvReac Rash Verified 12/13/22 07:24 - Social History Does the pt smoke?: No Smoking Status: Never smoker Does the pt drink ETOH?: No Does the pt have substance abuse?: No - Immunizations Immunizations are current?: Yes PD ED PE NORMAL - Vitals Vital signs reviewed: Yes - General General: Alert and oriented X 3, Well developed/nourished - Derm Derm: Normal color, Warm and dry - Extremities Extremities: Other (right knee with moderate effusion. Reluctant ROM due to pain on mvoemnet. Feeling of some grinding feeling at times. No locking nor giving out. Pain wiht valgus stress but no laxity. Cruciate testing without pain/laxity. Too guarded for clear meniscal testing. ) - Neuro Neuro: Alert and oriented X 3, No motor deficit, No sensory deficit Results - Vitals Vitals: Vital Signs - 24 hr 12/13/22 07:24 Temperature 36.5 C Heart Rate 88 Respiratory 18 Rate Blood Pressure 132/90 H O2 Saturation 95 Oxygen O2 Source Room air - Rads (name of study) right knee Relevant Findings:: Prelim report reviewed, EMP independent interpretation of test (moderate knee effusion. No fractures. ), See rad report PD Medical Decision Making - ED course Complexity details: reviewed results, considered differential (mechanism, symptoms and exam are most likely c/w some MCL strain and perhaps meniscal contusion/tear. Will have him wear knee brace and follow up if not better 1 week. ), d/w patient Departure - Departure Disposition: 01 Home, Self Care Clinical Impression: Accidental fall, Right knee injury Condition: Stable Record reviewed to determine appropriate education?: Yes Instructions: ED Sprain Knee Follow-Up: Orthopedic Care [Provider Group] Comments: Your x-ray appears normal without any signs of fractures. The knee exam has some effusion (fluid in the joint) which is causing a bit of the pain and why it hurts more today. The swelling should go down over the next few days. The swelling does signify injury in the knee joint. This may be as simple as bruising of the cartilage or strain of the MCL ligament. On exam it does not feel on 630 such that I do not feel there are any torn ligaments per se. The grinding feeling with movement may suggest some inflammation of the meniscus/cartilage or even a small partial tear. If that were the case then it may take several weeks or more to heal up well enough. Use the hinged knee brace when up and around. Initially we have it set at 0 to 20 degrees for just slight movement. As it is feeling better, you can unlock it or set it to 0-90 for better range of motion. I would continue wearing it however for 2 to 3 weeks even if it is feeling better so that you do not reinjure it during that time. Use ibuprofen or naproxen 2-3 times daily. Add Tylenol every 4-6 hours if needed for pain. Follow-up with Ortho or your primary care if not improving well over the next week. Forms: Activity restrictions Discharge Date/Time: 12/13/22 10:12
[2022-12-13] MEDS ORDERED: ACETAMINOPHEN 325 MG TABLET PO STA (09:26)
[2022-12-13] MEDS ORDERED: IBUPROFEN 600 MG TABLET PO STA (09:26)
== END 2022-12-13 10:12 | disposition home or self-care (01) ==
LOC: ED 07:15
DX: S89.91XA Unspecified injury of right lower leg, initial encounter (principal); W01.0XXA Fall on same level from slipping, tripping and stumbling without subsequent striking against object, initial encounter
CPT/HCPCS: 73564; 99283; A9270

== ENCOUNTER 2023-01-19 16:51 | Outpatient (CLI) | payer OTHER ==
--- NOTE | 2023-01-20 11:07 | MRI Report ---
PROCEDURE: KNEE WO - RT INDICATIONS: PAIN IN RIGHT KNEE TECHNIQUE: Noncontrast sagittal PD fast spin echo and T2 fast spin echo with fat saturation, sagittal 3-D gradie nt sequence with fat saturation; coronal T1 spin echo and PD fast spin echo with fat saturation, and axial PD fast spin echo with fat saturation through the knee. COMPARISON: None. FINDINGS: Image quality: Excellent. Menisci: Complex tear involving body and posterior horn of medial meniscus is seen extending to both superior and inferior articulating surfaces. Peripheral displacement of medial meniscus bowing medial collateral ligament is also seen. The lateral meniscus is intact. Moderate grade partial-thickness t ear involving posterior medial meniscal root ligament is seen. Cruciate ligaments: The anterior cruciate ligament is thickened with intrasubstance T2 hyperintense signal. The posterior cruciate ligament is intact. Medial structures: The medial collateral ligament appears moderately thickened with surrounding soft tissue edema and intrasubstance T2 hyperintense signal. The posterior oblique ligament, semimembran osus tendon insertions, and oblique popliteal ligament, and meniscocapsular junction appear intact. Visualized portions of the pes anserinus tendons appear normal. No abnormal bursal fluid. Lateral structures: The lateral collateral ligament, long and short heads of the biceps femoris tend on appear intact. The popliteus tendon appears normal; the popliteofibular ligament appears intact. Iliotibial band appears normal. Anterior structures: Distal quadriceps tendinosis is seen at its superior patella insertion. The boyce lla tendon is intact. Patellar alignment is normal. No femoral trochlear dysplasia or ventral trochl ear prominence. No edema in the infrapatellar fat pad. Bones and cartilage: Mild to moderate tricompartmental osteoarthritis and chondromalacia is seen mo st notably in medial femoral tibial compartment. No fracture or dislocation. No significant marrow ed sharan. Joint space: There is small to moderate amount of knee joint fluid. There is a small lobulated Stiles 's cyst. Normal appearing synovial plicae are incidentally noted. IMPRESSION: 1. Complex tear involving body and posterior horn of medial meniscus extending to both superior and i nferior articulating surfaces. Moderate grade partial-thickness tear involving posterior medial menis cosmo root ligament. The lateral meniscus is intact. 2. Degenerative changes and low-grade intrasubstance partial thickness tear involving anterior crucia te ligament. No full-thickness ACL rupture. The PCL is intact. 3. Moderate grade MCL sprain/partial thickness tear. 4. Mild to moderate tricompartmental osteoarthritis and chondromalacia most notably in medial femoral tibial compartment. No fracture or dislocation. Small to moderate joint effusion and small lobulated Stiles's cyst. No gross loose bodies. 5. Distal quadriceps tendinosis at its superior patella insertion. Patellar tendon is intact. Reviewed by: Win Dejesus MD on 01/20/2023 11:06 AM PDT Approved by: Win Dejesus MD on 01/20/2023 11:06 AM PDT Station ID: [id number]
== END 2023-01-19 16:52 | disposition home or self-care (01) ==
LOC: DI 16:51
DX: S83.241A Other tear of medial meniscus, current injury, right knee, initial encounter (principal); S83.511A Sprain of anterior cruciate ligament of right knee, initial encounter; S83.411A Sprain of medial collateral ligament of right knee, initial encounter; M17.11 Unilateral primary osteoarthritis, right knee; M94.261 Chondromalacia, right knee; M25.461 Effusion, right knee; M71.21 Synovial cyst of popliteal space [Baker], right knee; M67.863 Other specified disorders of tendon, right knee

== ENCOUNTER 2023-03-14 19:51 | Emergency (ER) | payer OTHER ==
[2023-03-14 20:19] VITALS: BP 113/84
[2023-03-14] MEDS ORDERED: DEXAMETHASONE 10 MG/ML VIAL PO STA (20:29)
[2023-03-14] MEDS ORDERED: AMOX/CLAV 875 MG/125 MG TABLET PO STA (20:29)
[2023-03-14] MEDS ORDERED: CHERRY SYRUP 10 ML UDC PO ONE (20:29)
--- NOTE | 2023-03-14 20:32 | ED Physician Documentation ---
PD HPI URI - Stated complaint Stated Complaint: COUGH/SORE THROAT - Chief complaint Chief Complaint: Heent - History obtained from History obtained from: Patient - History of Present Illness Timing - onset: How many days ago (4) Timing duration: Days (4) Timing details: Gradual onset, Still present Associated symptoms: Nasal congestion, Rhinorrhea, Sinus pain, Sore throat, Productive cough, Dyspnea. No: Fever, Chills, Sweats, Chest pain, Bilateral edema, Unilateral edema Contributing factors: Other (uses CPAP). No: Sick contact Improves by: Rest Worsened by: Activity Similar symptoms before: Diagnosis (sinusitis) Recently seen: Not recently seen - Additional information Additional information: 62-year-old Bradley Oliver has a history of sleep apnea and uses a CPAP machine. He states that [facility] has [facility] of this [facility] and he believes that 4 nights ago they turned up the pressure high enough that it blew water directly into his lungs. He states that since this time he has developed a cough and congestion runny nose and sinus drainage as well as sinus pain. He has had this happen to him once before. He indicates that he is coughing up yellow-green phlegm and has a hard time breathing through his nose. He recalls prior treatment here for OM with rapid recovery after treatment with decadron and zithromax. Review of Systems Constitutional: denies: Fever, Chills, Myalgias Eyes: denies: Decreased vision Ears: reports: Loss of hearing. denies: Ear pain Nose: reports: Rhinorrhea / runny nose, Congestion, Sinus pressure / pain Throat: reports: Sore throat Cardiac: denies: Chest pain / pressure, Palpitations Respiratory: reports: Dyspnea, Cough. denies: Hemoptysis, Wheezing GI: denies: Abdominal Pain, Nausea, Vomiting, Constipation, Diarrhea : denies: Dysuria, Frequency PD PAST MEDICAL HISTORY - Past Medical History Cardiovascular: Hypertension Respiratory: Sleep apnea, CPAP use Neuro: Migraines Endocrine/Autoimmune: None GI: GERD, Hiatal hernia : None HEENT: Chronic vision loss, Chronic sinusitis Psych: Post traumatic stress disorder Musculoskeletal: Chronic back pain Derm: None - Past Surgical History Past Surgical History: Yes General: Gastric surgery, Hiatal hernia repair, Colonoscopy Ortho: Spine surgery - Present Medications Home Medications: Ambulatory Orders Medication Instructions Recorded Confirmed lisinopriL [Lisinopril] 10 mg ORAL DAILY 01/02/16 06/19/23 Amitriptyline [Elavil] 10 mg PO DAILY 12/28/17 12/13/22 Aspirin/Acetaminophen/Caffeine 1 cap PO DAILY PRN 12/28/17 12/13/22 [Excedrin Migraine Caplet] Omeprazole [PriLOSEC] 20 mg PO BID 12/28/17 03/14/23 Cyclobenzaprine [Flexeril] 10 mg PO TID PRN 12/13/22 12/13/22 Amox/Clav 875/125 [Augmentin] 1 each PO Q12H #20 tablet 03/14/23 - Allergies Allergies/Adverse Reactions: Allergies Allergy/AdvReac Type Severity Reaction Status Date / Time Latex, Natural Rubber AdvReac Rash Verified 12/13/22 07:24 - Social History Does the pt smoke?: No Smoking Status: Never smoker Does the pt drink ETOH?: No Does the pt have substance abuse?: No - Immunizations Immunizations are current?: Yes PD ED PE NORMAL - Vitals Vital signs reviewed: Yes (tachy and hypertensive ) - General General: Alert and oriented X 3, No acute distress, Well developed/nourished - HEENT HEENT: Atraumatic, PERRL, EOMI, Other (both TM's with minimal erythema under the umbo without loss of landmarks. Pharynx with mild erythema. Point tenderness to the maxillary sinus bilat. ) - Neck Neck: Supple, no meningeal sign, No bony TTP - Cardiac Cardiac: RRR, No murmur - Respiratory Respiratory: No respiratory distress, Clear bilaterally, Other (no wheeze or rhonchi with good air movement.) - Abdomen Abdomen: Soft, Non tender - Back Back: No CVA TTP, No spinal TTP - Derm Derm: Normal color, Warm and dry, No rash - Extremities Extremities: No deformity, No edema - Neuro Neuro: Alert and oriented X 3, novelty twister tender 2-12 intact, No motor deficit, No sensory deficit, Normal speech Eye Opening: Spontaneous Motor: Obeys Commands Verbal: Oriented GCS Score: 15 - Psych Psych: Normal mood, Normal affect Results - Vitals Vitals: Vital Signs - 24 hr 03/14/23 20:16 Temperature 36.7 C Heart Rate 104 H Respiratory 19 Rate Blood Pressure 113/84 H O2 Saturation 93 Oxygen O2 Source Room air PD Medical Decision Making - ED course Complexity details: considered differential, d/w patient ED course: 62-year-old male with cough and congestion sinus tenderness and difficulty breathing through his nose has maxillary sinus point tenderness on exam he does have some evidence of inflammation to the ear and pharynx as well. He is diagnosed with maxillary sinusitis and administered a dose of dexamethasone and Augmentin. I considered the use of bronchodilator in this patient but he had good air movement which was symmetric and without rhonchi or wheezes. He has used an inhaler once previously and he does not feel it is necessary currently. I agree with the patient. Departure - Departure Disposition: Home, Self Care Clinical Impression: Sinusitis Qualifiers: Sinusitis location: maxillary Chronicity: acute Recurrence: not specified as recurrent Qualified Code(s): J01.00 - Acute maxillary sinusitis, unspecified Condition: Stable Instructions: ED Sinusitis Abx Tx Follow-Up: SHITAL LI MD [Primary Care Provider] - Prescriptions: Amox/Clav 875/125 [Augmentin] 1 each PO Q12H #20 tablet Comments: Bradley today looks like you have acute maxillary sinusitis. We have begun treatment with dexamethasone which is a powerful decongestant steroid and the expectation is that you have improvement in breathing through your nose this evening. We have started you on some antibiotic the Augmentin has been E scribed to the [facility] in [place]. The expectation with treatment is continued improvement and resolution of symptoms within 10 to 14 days. We are not expecting worsening of your cough, worsening of your breathing, or nonresolution of your symptoms. These are all reasons for follow-up with your primary care doctor or return to the emergency department.
--- OUTSIDE RECORDS SUMMARY | 2023-03-14 20:37 | EXTERNAL MEDICAL SUMMARY RPT | Continuity of Care Document ---
Author Name Unknown Address [address] [place] [address] Phone Organization [facility] Address [address] [place] [address] Phone Problems date description facility 2022-12-22 18:39 Unspecified thoracic , thoracolumbar and lumbosacral [facility] 2022-12-22 19:26 Unspecified thoracic , thoracolumbar and lumbosacral [facility] Results/Labs test date author facility value unit interpretation Result panel 1 (unknown) (no date) (unknown) (unknown) (no value) (units unknown) (unknown) (unknown) (no date) (unknown) (unknown) [id number] (units unknown) (unknown) (unknown) (no date) (unknown) (unknown) 12/22/22 (units unknown) (unknown) (unknown) (no date) (unknown) (unknown) 1. Relatively stable examination. (units unknown) (unknown) (unknown) (no date) (unknown) (unknown) [address] [place] [address] (un its unknown) (unknown) (unknown) (no date) (unknown) (unknown) 2. Multilevel facet arthropathy. (units unknown) (unknown) (unknown) (no date) (unknown) (unknown) 3. Mild-to-mod erate canal stenosis at L4-L5. (units unknown) (unknown) (unknown) (no date) (unknown) (unknown) Accession Numb er: [id number] (units unknown) (unknown) (unknown) (no date) (unknown) (unknown) Age/Sex: 62 / M Date of Service: (units unknown) (unknown) (unknown) (no date) (unknown) (unknown) Alignment and Curvature: There is normal bony alignment. (units unknown) (unknown) (unknown) (no date) (unknown) (unknown) [place] [address] (units unknown) (unknown) (unknown) (no date) (unknown) (unknown) Approved by: Jani Judge M.D. on 12/23/2022 at 12:17 (units unknown) (unknown) (unknown) (no date) (unknown) (unknown) Bone Marrow: M arrow is of normal overall signal. No acute vertebral body (units unknown) (unknown) (unknown) (no date) (unknown) (unknown) COMPARISON: [facility], MR, L-SPINE WITHOUT CONTRAST, 09/28/2017, 19:58. (units unknown) (unknown) (unknown) (no date) (unknown) (unknown) : 1 Acct:[id number] (units unknown) (unknown) (unknown) (no date) (unknown) (unknown) Dictated by: Jani Judge M.D. on 12/23/2022 at 12:12 (units unknown) (unknown) (unknown) (no date) (unknown) (unknown) Epidural (units unknown) (unknown) (unknown) (no date) (unknown) (unknown) FINDINGS: (units unknown) (unknown) (unknown) (no date) (unknown) (unknown) IMPRESSION: (units unknown) (unknown) (unknown) (no date) (unknown) (unknown) INDICATIONS: L UMBAR DISC DISEASE (units unknown) (unknown) (unknown) (no date) (unknown) (unknown) Image quality: Excellent. (units unknown) (unknown) (unknown) (no date) (unknown) (unknown) [facility] (uni ts unknown) (unknown) (unknown) (no date) (unknown) (unknown) L1-L2: Mild fa cet arthropathy. No canal stenosis or foraminal stenosis. (units unknown) (unknown) (unknown) (no date) (unknown) (unknown) L2-L3: Stable findings. Mild disc bulge. Mild facet hypertrophy. No canal (units unknown) (unknown) (unknown) (no date) (unknown) (unknown) L3-L4: Stable findings. Mild disc bulge. Mild facet hypertrophy. Epidural (units unknown) (unknown) (unknown) (no date) (unknown) (unknown) L4-L5: Stable findings. Disc bulge. At least moderate facet hypertrophy. (units unknown) (unknown) (unknown) (no date) (unknown) (unknown) L5-S1: Slight interval increase in disc height loss, severe. Minimal disc (units unknown) (unknown) (unknown) (no date) (unknown) (unknown) Loc: MRI (units unknown) (unknown) (unknown) (no date) (unknown) (unknown) Magnetic Reson ance Report (units unknown) (unknown) (unknown) (no date) (unknown) (unknown) Noncontrast sagittal T1 spin echo and T2 fast echo, sagittal STIR, and T2 fast (units unknown) (unknown) (unknown) (no date) (unknown) (unknown) Ordering Provi gudelia: Frieda Munguia MD (units unknown) (unknown) (unknown) (no date) (unknown) (unknown) PROCEDURE: MR LUMBAR SPINE WO CON (units unknown) (unknown) (unknown) (no date) (unknown) (unknown) Paraspinous So ft Tissues: No paravertebral masses. (units unknown) (unknown) (unknown) (no date) (unknown) (unknown) Patient: Annie Elmore MR#: M (units unknown) (unknown) (unknown) (no date) (unknown) (unknown) Procedure: MR lumbar spine wo con (units unknown) (unknown) (unknown) (no date) (unknown) (unknown) Signed (units unknown) (unknown) (unknown) (no date) (unknown) (unknown) Spinal Cord: C onus medullaris terminates at the L1-L2 level. Visualized cord (units unknown) (unknown) (unknown) (no date) (unknown) (unknown) T12-L1: Normal appearance. (units unknown) (unknown) (unknown) (no date) (unknown) (unknown) TECHNIQUE: (units unknown) (unknown) (unknown) (no date) (unknown) (unknown) bulge. Facet (units unknown) (unknown) (unknown) (no date) (unknown) (unknown) compression (units unknown) (unknown) (unknown) (no date) (unknown) (unknown) demonstrates n ormal signal and size. (units unknown) (unknown) (unknown) (no date) (unknown) (unknown) foraminal stenosis. (units unknown) (unknown) (unknown) (no date) (unknown) (unknown) foraminal (units unknown) (unknown) (unknown) (no date) (unknown) (unknown) fractures. (units unknown) (unknown) (unknown) (no date) (unknown) (unknown) hypertrophy. N o canal stenosis. Mild bilateral foraminal stenosis. (units unknown) (unknown) (unknown) (no date) (unknown) (unknown) lipomatosis. C anal stenosis. No significant foraminal stenosis. (units unknown) (unknown) (unknown) (no date) (unknown) (unknown) lipomatosis. Qstw-[id number]-ynlxbgzh canal stenosis. Rrgu-[id number]-pizowqee bilateral (units unknown) (unknown) (unknown) (no date) (unknown) (unknown) may be performed. (u nits unknown) (unknown) (unknown) (no date) (unknown) (unknown) spin echo (units unknown) (unknown) (unknown) (no date) (unknown) (unknown) stenosis or (units unknown) (unknown) (unknown) (no date) (unknown) (unknown) stenosis. (units unknown) (unknown) (unknown) (no date) (unknown) (unknown) through the azra mbar spine. In cases with scoliosis, additional coronal T2 fast (units unknown) (unknown)
== END 2023-03-14 20:43 | disposition home or self-care (01) ==
LOC: ED 19:51
DX: J01.00 Acute maxillary sinusitis, unspecified (principal)
CPT/HCPCS: 99282; 99284; A9270